=== PATIENT | male | born 1945 | race Caucasian/White ===

== ENCOUNTER 2018-07-11 22:16 | Emergency (ER) | payer OTHER, MEDICAID ==
[~2018-07-11] VITALS: Ht 172.7 cm; Wt 78.0 kg
[2018-07-11 22:20] VITALS: Ht 172.7 cm; Wt 78.0 kg
[2018-07-11 23:31] VITALS: BP 163/86
== END 2018-07-11 23:31 | disposition home or self-care (01) ==
LOC: ED 22:16
DX: R51 Headache (principal); I10 Essential (primary) hypertension; E11.9 Type 2 diabetes mellitus without complications